=== PATIENT | female | born 1965 | race Caucasian/White ===

== ENCOUNTER 2018-08-25 08:04 | Outpatient (CLI) | payer BC | END 2018-08-25 08:05 | disposition home or self-care (01) | LOC: BICMAMMO 08:04 | PROVIDERS: ATTEND Obstetrics & Gynecology | DX: Z12.31 Encounter for screening mammogram for malignant neoplasm of breast (principal); R92.1 Mammographic calcification found on diagnostic imaging of breast; Z80.3 Family history of malignant neoplasm of breast | CPT/HCPCS: 77063; 77067 ==

== ENCOUNTER 2019-06-30 10:21 | Outpatient (CLI) | payer BC ==
--- NOTE | 2019-06-30 11:22 | MMO ---
Bilateral MAMMO Bilat Diag DDI+CHAIM. CLINICAL HISTORY: Patient is 54 years old and is seen for additional evaluation requested from prior study. The patient has the following family history of breast cancer: paternal grandmother, at age 83, malignant (generic). The patient has no personal history of cancer. VIEWS: The views performed were: bilateral craniocaudal spot compression with tomosynthesis; bilateral mediolateral oblique spot compression with tomosynthesis; and bilateral mediolateral with tomosynthesis. FILMS COMPARED: The present examination has been compared to prior imaging studies performed at [facility] on 06/18/2019, and at [facility] on 08/06/2017, 08/25/2018 and 06/30/2019. MAMMOGRAM FINDINGS: Finding 1: Focal asymmetry in the upper outer quadrant does not persist on additional views and is felt to represent superimposed breast tissue. Finding 2: There is a partialy obscured oval mass in the left breast that persists on additional views and is felt to represent a complex cyst on US. IMPRESSION: FINDING 1: FINDING IN THE RIGHT BREAST IS BENIGN. FINDING 2: FINDING IN THE LEFT BREAST IS PROBABLY BENIGN. FOLLOW-UP IN 6 MONTHS IS RECOMMENDED. SIX MONTH FOLLOW UP MAMMOGRAM AND ULTRASOUND THE RESULTS OF THIS EXAM WERE SENT TO THE PATIENT. ACR BI-RADS Category 3 - Probably benign finding - short interval follow-up suggested. [facility] will notify the patient of the need for additional imaging services. MAMMOGRAPHY NOTE: 1. A negative mammogram report should not delay a biopsy if a dominant of clinically suspicious mass is present. 2. Approximately 10% to 15% of breast cancers are not detected by mammography. 3. Adenosis and dense breasts may obscure an underlying neoplasm. Reported by: AVERY ARANGO MD Electonically Signed: [id number]
--- NOTE | 2019-06-30 11:30 | ULT ---
LEFT BREAST ULTRASOUND: HISTORY: Abnormal mass noted on a screening study. TECHNIQUE: Targeted sonographic imaging of the left breast was performed. Static images were reviewed. After r eviewing the static images, real-time imaging was also performed in the presence of the radiologist. FINDINGS: Static and real-time images demonstrated a well-circumscribed oval hypoechoic focus measuring 0.3 x 0 .2 x 0.4 cm. A complex cyst is favored. The cyst is felt to correspond to the mammographic findings . IMPRESSION: BIRADS category 3, probably benign. RECOMMENDATION: Six-month followup with left breast mammogram and ultrasound. POS: [facility]
== END 2019-06-30 10:22 | disposition home or self-care (01) ==
LOC: BICMAMMO 10:21
PROVIDERS: ATTEND Obstetrics & Gynecology
DX: N63.20 Unspecified lump in the left breast, unspecified quadrant (principal); N63.10 Unspecified lump in the right breast, unspecified quadrant; D24.1 Benign neoplasm of right breast
CPT/HCPCS: 77066; G0279

== ENCOUNTER 2019-12-30 09:26 | Outpatient (CLI) | payer BC ==
--- NOTE | 2019-12-30 10:44 | ULT ---
LEFT BREAST ULTRASOUND: HISTORY: Six-month followup. FINDINGS: Comparison is made with the ultrasound of 06/30/2019 and correlation is made with today's mammogram. Sonographic evaluation of the 4 o'clock position of the left breast 3 cm from the nipple demonstrates a stable 4 x 2 x 3 mm nonshadowing hypoechoic nodule. The previously noted mammographic finding is not definitely seen on the current mammogram. IMPRESSION: BIRADS category 3 - probably benign findings. Six-month followup left diagnostic mammogram and left breast ultrasound is recommended. POS: OFF
--- NOTE | 2019-12-31 12:41 | MMO ---
Left Breast MAMMO Unilat Diag DDI LT+CHAIM. CLINICAL HISTORY: Patient is 54 years old and is seen for follow-up at short-interval from prior study. The patient has the following family history of breast cancer: paternal grandmother, at age 83, malignant (generic). The patient has no personal history of cancer. VIEWS: The views performed were: left craniocaudal with tomosynthesis; left mediolateral oblique with tomosynthesis; and left mediolateral with tomosynthesis. FILMS COMPARED: The present examination has been compared to prior imaging studies performed at [facility] on 06/18/2019, and at [facility] on 06/30/2019 and 12/30/2019. This study has been interpreted with the assistance of computer-aided detection. MAMMOGRAM FINDINGS: The breast is heterogeneously dense, which could obscure a lesion on mammography. Previously noted node at 4:00 is not definitely see on mammo. IT hower remains stable on US. IMPRESSION: FINDING IN THE LEFT BREAST IS PROBABLY BENIGN. FOLLOW-UP IN 6 MONTHS IS RECOMMENDED. THE RESULTS OF THIS EXAM WERE SENT TO THE PATIENT. ACR BI-RADS Category 3 - Probably benign finding - short interval follow-up suggested. [facility] will notify the patient of the need for additional imaging services. MAMMOGRAPHY NOTE: 1. A negative mammogram report should not delay a biopsy if a dominant of clinically suspicious mass is present. 2. Approximately 10% to 15% of breast cancers are not detected by mammography. 3. Adenosis and dense breasts may obscure an underlying neoplasm. Reported by: ARTEM BURGOS MD Electonically Signed: [id number]
== END 2019-12-30 09:27 | disposition home or self-care (01) ==
LOC: BICMAMMO 09:26
PROVIDERS: ATTEND Internal Medicine
DX: R92.8 Other abnormal and inconclusive findings on diagnostic imaging of breast (principal)
CPT/HCPCS: G0279

== ENCOUNTER 2020-07-13 09:05 | Outpatient (CLI) | payer BC ==
--- NOTE | 2020-07-13 10:02 | MMO ---
Bilateral MAMMO Bilat Diag DDI+CHAIM. CLINICAL HISTORY: Patient is 55 years old and is seen for diagnostic exam. The patient has the following family history of breast cancer: paternal grandmother, at age 83, malignant (generic). The patient has no personal history of cancer. VIEWS: The views performed were: bilateral craniocaudal with tomosynthesis; bilateral mediolateral oblique with tomosynthesis; and bilateral mediolateral with tomosynthesis. FILMS COMPARED: The present examination has been compared to prior imaging studies performed at [facility] on 06/30/2019 and 12/30/2019. This study has been interpreted with the assistance of computer-aided detection. MAMMOGRAM FINDINGS: The breasts are heterogeneously dense, which could obscure a lesion on mammography. Finding 1: There are stable benign appearing calcifications seen in both breasts. Finding 2: There are stable benign appearing densities seen in both breasts. There are no suspicious masses, suspicious calcifications, or new areas of architectural distortion. IMPRESSION: THERE IS NO MAMMOGRAPHIC EVIDENCE OF MALIGNANCY. A ROUTINE FOLLOW-UP MAMMOGRAM IN 1 YEAR IS RECOMMENDED. THE RESULTS OF THIS EXAM WERE SENT TO THE PATIENT. ACR BI-RADS Category 2 - Benign finding MAMMOGRAPHY NOTE: 1. A negative mammogram report should not delay a biopsy if a dominant of clinically suspicious mass is present. 2. Approximately 10% to 15% of breast cancers are not detected by mammography. 3. Adenosis and dense breasts may obscure an underlying neoplasm. Reported by: JUANCARLOS PHILLIP MD Electonically Signed: [id number]
== END 2020-07-13 09:06 | disposition home or self-care (01) ==
LOC: BICULT 09:05
PROVIDERS: ATTEND Internal Medicine
DX: R92.8 Other abnormal and inconclusive findings on diagnostic imaging of breast (principal)
CPT/HCPCS: 77066; G0279

== ENCOUNTER 2021-08-23 15:01 | Outpatient (CLI) | payer BC | END 2021-08-23 15:02 | disposition home or self-care (01) | LOC: BICMAMMO 15:01 | PROVIDERS: ATTEND Physician Assistant | DX: Z12.31 Encounter for screening mammogram for malignant neoplasm of breast (principal); Z80.3 Family history of malignant neoplasm of breast | CPT/HCPCS: 77063; 77067 ==